=== PATIENT | female | born 1990 | race Caucasian/White ===

== ENCOUNTER 2017-02-01 17:38 | Outpatient (CLI) | payer OTHER ==
[2017-05-22] MEDS ORDERED: COLACE 100MG C100 MG PO (13:04)
== END 2017-02-01 20:31 | disposition home or self-care (01) ==
LOC: GENOP 17:38
DX: O36.8120 Decreased fetal movements, second trimester, not applicable or unspecified (principal); Z3A.25 25 weeks gestation of pregnancy
CPT/HCPCS: 59025

== ENCOUNTER 2021-10-29 22:12 | Outpatient (CLI) | payer BC, OTHER ==
[~2021-10-29 22:12] MED LIST: COLACE 100MG C100 MG PO; OCUFLOX5 ML EARRT; PRENATAL VITAM1 EAC5 PO; ZANTAC150 MG PO
== END 2021-10-29 23:41 | disposition home or self-care (01) ==
LOC: GENOP 22:12
DX: O99.891 Other specified diseases and conditions complicating pregnancy (principal); M54.9 Dorsalgia, unspecified; R10.2 Pelvic and perineal pain; O36.8120 Decreased fetal movements, second trimester, not applicable or unspecified; Z3A.24 24 weeks gestation of pregnancy
CPT/HCPCS: 59025; 81001

== ENCOUNTER 2022-01-19 16:24 | Inpatient (IN) | payer BC, OTHER ==
[~2022-01-19] VITALS: Ht 157.5 cm; Wt 103.4 kg
[2022-01-19 17:00] LABS: RED BLOOD COUNT 3.89 M/UL (4.00-5.10); WHITE BLOOD COUNT 6.1 K/UL (4.5-11.0)
[2022-01-19 17:21] LABS: BUN/CREATININE RATIO 8 (0-10)
[2022-01-19] MEDS ORDERED: PRENATAL VITAM1 EAC5 PO (18:03)
[2022-01-19] MEDS ORDERED: PROTONIX40 MG PO (18:04)
[2022-01-19] MEDS ORDERED: ACTIGALL 300MG300 MG PO (18:04)
[2022-01-19] MEDS ORDERED: PROPRANOLOL HCL20 MG PO (18:04)
[2022-01-21 03:41] LABS: HEMOGLOBIN 7.9 gm/dl (12.3-15.3)
[2022-01-21] MEDS ORDERED: HYDROCODON-ACE1 EAC2 PO (14:20)
[2022-01-21] MEDS ORDERED: IBUPROFEN800 MG PO (14:20)
[2022-01-21] MEDS ORDERED: COLACE 100MG C100 MG PO (14:20)
[2022-01-21] MEDS ORDERED: FERROCITE324 MG PO (14:20)
[2022-01-22 00:30] LABS: HEMOGLOBIN 7.9 gm/dl (12.3-15.3)
[2022-01-22] MEDS ORDERED: MACROBID 100 M100 MG PO (09:59)
== END 2022-01-22 14:01 | disposition home or self-care (01) | DRG 786 ==
LOC: GENOP 16:24 → OB 16:55
PROVIDERS: Obstetrics & Gynecology; ADMIT Obstetrics & Gynecology
PROC: 4A1HXCZ Monitoring of Products of Conception, Cardiac Rate, External Approach (ICD-10-PCS; 2022-01-19)
PROC: 3E033VJ Introduction of Other Hormone into Peripheral Vein, Percutaneous Approach (ICD-10-PCS; 2022-01-20)
PROC: 10D00Z1 Extraction of Products of Conception, Low, Open Approach (ICD-10-PCS; principal; 2022-01-20 10:38)
DX: O26.62 Liver and biliary tract disorders in childbirth (principal); K83.1 Obstruction of bile duct; O98.82 Other maternal infectious and parasitic diseases complicating childbirth; Z20.822 Contact with and (suspected) exposure to COVID-19; Z37.0 Single live birth; Z3A.36 36 weeks gestation of pregnancy; O99.344 Other mental disorders complicating childbirth; Z28.310 Unvaccinated for COVID-19; Z82.49 Family history of ischemic heart disease and other diseases of the circulatory system; Z82.5 Family history of asthma and other chronic lower respiratory diseases; O32.1XX0 Maternal care for breech presentation, not applicable or unspecified
CPT/HCPCS: 80053; 81001; 82800; 85014; 85018; 85025; C9113; J0690; J1170; J2405; J2550; J2590; J3105; J7120; U0002